=== PATIENT | female | born 1985 | race Caucasian/White ===

== ENCOUNTER 2017-12-20 21:19 | Emergency (ER) | payer SELFPAY ==
[2017-12-20 21:23] VITALS: BP 125/89; PULSE 91; RESP 18; TEMP 98.9; O2SAT 98
[2017-12-20] MEDS ORDERED: TETANUS/DIPHTHERIA TOXOID ADULT 0.5 ML VIAL IM ONE (22:30)
[2017-12-20] MEDS ORDERED: LIDOCAINE 1%/EPINEPHrine 1:100,000 SOLN 20 ML VIAL INFIL ONE (22:30)
[2017-12-20] MEDS ORDERED: ceFAZolin 2 GM PREMIX 50 ML IV ONE (22:30)
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
[2017-12-20] MEDS ORDERED: CEPH-460 PO (23:21)
[2017-12-20] MEDS ORDERED: NORC5TAB PO (23:21)
== END 2017-12-21 00:05 | disposition home or self-care (01) ==
LOC: NEPD 21:19
DX: S01.311A Laceration without foreign body of right ear, initial encounter (principal); S00.93XA Contusion of unspecified part of head, initial encounter; W22.8XXA Striking against or struck by other objects, initial encounter; Y92.89 Other specified places as the place of occurrence of the external cause; Z23 Encounter for immunization
CPT/HCPCS: 12014; 90471; 90714; 96365; 99284; J0690